=== PATIENT | female | born 1960 | race African-American/Black ===

== ENCOUNTER 2019-06-25 06:06 | Inpatient (IN) | payer BC ==
[~2019-06-25] VITALS: Ht 167.6 cm; Wt 79.4 kg
--- NOTE | 2019-06-25 07:30 | NUR ---
ERGONOMICS TECHNICIAN NOTES RECEIVED PT VIA [facility] DIRECT ADMIT FROM [place].ALERT ORIENTED X 4, INITIALLY SEEN AT [facility] FOR NAUSEA AND VOMITING, [place]. INCIDENTAL FINDING OF BP AT 200/100. WAS GIVEN ANTIEMETICS AND BP MEDICATIONS. BP WENT DOWN TO 130/90. PATIENT CHANGE INTO HOSPITAL GOWN, VITALS SIGNS TAKEN, BODY ASSESSMENT DONE. ON ROOM AIR, NOT IN ANY RESPIRATORY DISTRESS, NO SOB. RESPIRATION UNLABORED, SINUS RHYTHM ON TELE MONITOR, HR 69, DENIES CHEST PAIN, RT HAND IV ACCESS G18, FLUSHES WELL, SITE CLEAR. NO SKIN ISSUES. AMBULATORY, STEADY GAIT. UNIT ORIENTATION DONE AND USE OF CALL LIGHT. VERBALIZED UNDERSTANDING. BED LOW LOCKED, CALL LIGHT WITHIN REACH, WILL CONTINUE TO MONITOR.
--- NOTE | 2019-06-25 07:45 | NUR ---
RN NOTES DR. DENNY MORILLO NOTIFIED OF ADMISSION.
[2019-06-25 08:00] VITALS: BP 210/93
--- NOTE | 2019-06-25 08:00 | NUR ---
RN NOTES PER DR. BALDWIN. ADMITTING TODAY IS SASHA SOLIS. CALLED EXCHANGE AND LEFT MESSAGE TO SASHA SOLIS.
[2019-06-25] MEDS ORDERED: ASPI-1169 PO (08:33)
[2019-06-25] MEDS ORDERED: CARV25TA2 PO (08:33)
[2019-06-25] MEDS ORDERED: RAMI10CA69 PO (08:33)
[2019-06-25] MEDS ORDERED: HYDR25TA4 PO (08:33)
[2019-06-25] MEDS ORDERED: hydrALAZINE HCL IV 20 MG VIAL IV ONE (10:30)
--- NOTE | 2019-06-25 11:00 | NUR ---
RN NOTES ADMINISTERED HYDRALAZINE 10 MG IV EARLIER. BP RECHECKED. 172/65. JACQUELYN SOLIS AT BED SIDE.
--- NOTE | 2019-06-25 11:25 | NUR ---
RN NOtES Called lab and spoke with SARAH that the MRSA (nares) sample is ready for garbage pick up man.
[2019-06-25 12:00] VITALS: BP 160/76
--- NOTE | 2019-06-25 12:00 | NUR ---
RN NOTES Patient in bed, a/o x4. Verbally responsive and able to make needs known. Denies any pain or discomfort. Blood pressure is now lower than 0800 am vitals, 160/76. IV line on right hand intact and flush well. No sob or wheezing noted. Skin is intact. Will continue to monitor
[2019-06-25] MEDS ORDERED: ACETAMINOPHEN 325 MG TABLET PO PRN (12:30)
[2019-06-25] MEDS ORDERED: Z GUARD REMEDY 2 OZ OINT TP PRN (12:30)
[2019-06-25] MEDS ORDERED: MAGNESIUM HYDROXIDE 30 ML UDC PO PRN (12:30)
[2019-06-25] MEDS ORDERED: CARVEDILOL 25 MG TABLET PO SCH (12:30)
[2019-06-25] MEDS ORDERED: ZOLPIDEM TARTRATE 5 MG TABLET PO PRN (12:30)
[2019-06-25] MEDS ORDERED: HYDROCODONE/APAP 5/325MG 1 EACH TABLET PO PRN (12:30)
[2019-06-25] MEDS ORDERED: ONDANSETRON HCL/PF 4 MG/2 ML VIAL IVP PRN (12:30)
[2019-06-25] MEDS: IV NS 0.9% 1,000 ML IV PRN (12:41)
[2019-06-25] MEDS: ASPIRIN 81 MG TAB.CHEW PO SCH (12:48)
[2019-06-25] MEDS: AMLODIPINE BESYLATE 5 MG TABLET PO SCH (12:49)
--- NOTE | 2019-06-25 12:56 | NUR ---
RN notes Demarcus from lab notified about RAPID INFLUENZA sample for pick.
[2019-06-25 14:21] LABS: BASOPHILS # (AUTO) 0.1 /CMM (0.0-0.2); BASOPHILS % (AUTO) 0.9 % (0.0-2.0); EOSINOPHILS % (AUTO) 0.6 % (0.0-6.0); HEMATOCRIT 39 % (33-45); HEMOGLOBIN 12.8 g/dL (11.5-14.8); LYMPHOCYTES # (AUTO) 1.3 /CMM (0.8-4.8); MEAN CORPUSCULAR HGB CONC 33 g/dl (31.0-36.0); MEAN CORPUSCULAR VOLUME 92 fL (82-100); MONOCYTES # (AUTO) 0.7 /CMM (0.1-1.30); MONOCYTES % (AUTO) 7.9 % (2.0-12.0); NEUTROPHILS # (AUTO) 6.7 /CMM (1.8-8.9); NEUTROPHILS % (AUTO) 75.6 % (43.0-81.0); PLATELET COUNT (AUTO) 229 /CMM (150-450); RED BLOOD CELL COUNT(AUTO) 4.26 MIL/uL (4.0-5.2); WHITE BLOOD COUNT (AUTO) 8.9 K/uL (4.3-11.0)
[2019-06-25 14:47] LABS: CALCIUM, SERUM 8.4 mg/dL (8.5-10.1); CREATININE 1.3 mg/dL (0.6-1.3); POTASSIUM 3.9 mmol/L (3.5-5.1)
[2019-06-25 16:00] VITALS: BP 162/86
--- NOTE | 2019-06-25 16:00 | NUR ---
RN NOTES Called lab and spoke with LAN that urine sample is ready for pick. Per Lan they will send someone to pick it up. Urine sample is in the refrigerator
--- NOTE | 2019-06-25 16:00 | NUR ---
RN NOTES Pt in bed, a/o x4. Verbally responsive and able to make needs known. No sob noted. IV line in r hand intact and patent. Denies any pain or discomfort.
[2019-06-25 17:54] LABS: APPEARANCE,URINE CLEAR (CLEAR); BILIRUBIN,URINE NEGATIVE (NEGATIVE); BLOOD, URINE NEGATIVE Ery/uL (NEGATIVE); COLOR,URINE YELLOW (YELLOW); KETONES,URINE NEGATIVE (NEGATIVE); LEUKOCYTE ESTERASE ,URINE NEGATIVE (NEGATIVE); NITRITE, URINE NEGATIVE (NEGATIVE); PROTEIN,URINE NEGATIVE (NEGATIVE); UGLUCOSE NEGATIVE (NEGATIVE); UROBILINOGEN,URINE 0.2 EU/dL (0.2)
[2019-06-25 20:00] VITALS: BP 133/82
[2019-06-25] MEDS: CARVEDILOL 12.5 MG TABLET PO SCH (23:58)
[2019-06-26] VITALS: BP 167/95
[2019-06-26] MEDS: IV NS 0.9% 1,000 ML IV PRN ×2 (02:10→18:54)
[2019-06-26 04:00] VITALS: BP 162/64
[2019-06-26 07:22] LABS: BASOPHILS % (AUTO) 0.2 % (0.0-2.0); EOSINOPHILS % (AUTO) 1.3 % (0.0-6.0); HEMATOCRIT 37 % (33-45); HEMOGLOBIN 12.2 g/dL (11.5-14.8); LYMPHOCYTES # (AUTO) 2.1 /CMM (0.8-4.8); LYMPHOCYTES % (AUTO) 25.1 % (20.0-44.0); MEAN CORPUSCULAR HGB CONC 33 g/dl (31.0-36.0); MEAN CORPUSCULAR VOLUME 93 fL (82-100); MONOCYTES # (AUTO) 0.8 /CMM (0.1-1.30); MONOCYTES % (AUTO) 9.2 % (2.0-12.0); NEUTROPHILS # (AUTO) 5.5 /CMM (1.8-8.9); NEUTROPHILS % (AUTO) 64.2 % (43.0-81.0); PLATELET COUNT (AUTO) 201 /CMM (150-450); RED BLOOD CELL COUNT(AUTO) 4.01 MIL/uL (4.0-5.2); WHITE BLOOD COUNT (AUTO) 8.5 K/uL (4.3-11.0)
[2019-06-26 07:31] LABS: CALCIUM, SERUM 8.1 mg/dL (8.5-10.1); CREATININE 1.3 mg/dL (0.6-1.3); MAGNESIUM 2.2 mg/dL (1.8-2.4); PHOSPHORUS 3.6 mg/dL (2.5-4.9); POTASSIUM 3.9 mmol/L (3.5-5.1)
[2019-06-26 08:00] VITALS: BP 185/80
--- NOTE | 2019-06-26 08:20 | NUR ---
TELE 1/RN AM INITIAL NOTES RECEIVED PT IN BED. AWAKE, AO X4. NO RESPIRATORY DISTRESS NOTES. ON ROOM AIR O2 SAT @ 99%. ON TELE MONITOR WITH SR. HR 64bpm. PT IS AMBULATORY. SKIN IS INTACT. IV IN RIGHT HAND INTACT AND FLUSHED WELL. NS RUNNING @ 75MLS/HR. BED LOCKED AND SET TO THE LOWEST POSITION. PLAN OF CARE DISCUSSED WITH THE PT. WILL CONTINUE TO MONITOR. CL WITHIN REACH. SAFETY MAINTAINED.
[2019-06-26] MEDS: AMLODIPINE BESYLATE 5 MG TABLET PO SCH (08:33)
[2019-06-26] MEDS: CARVEDILOL 12.5 MG TABLET PO SCH ×2 (08:33→21:00)
[2019-06-26] MEDS: ASPIRIN 81 MG TAB.CHEW PO SCH (08:34)
--- NOTE | 2019-06-26 10:22 | NUR ---
telephone clerks supervisor note seen by dr harkins notified about bp 185/80 with order hydralazine and Norvasc
[2019-06-26] MEDS: AMLODIPINE BESYLATE 10 MG TABLET PO SCH ×2 (10:40→10:41)
[2019-06-26 12:00] VITALS: BP 143/79
--- NOTE | 2019-06-26 12:30 | NUR ---
television engineering teacher note all needs attended ,cont on ivf as ordered, will monitor
[2019-06-26 16:00] VITALS: BP_SYST 153; BP_SYST 171; BP_DIAS 68; BP_DIAS 78
--- NOTE | 2019-06-26 18:35 | NUR ---
radiotelegraphist note new hl on lt hand gag 24inserted with good blood return
--- NOTE | 2019-06-26 19:00 | NUR ---
ARTIFICIAL TEETH INSPECTOR NOTES PT IS STABLE. RESTING IN BED. NEW IV ON LEFT HAND 24 GAUGE. IV PATENT, NO S/S OF INFECTION. CONTINUOUS IV FLUIDS RUNNING. SKIN IS DRY AND INTACT. PT IS COMFORTABLE IN BED. CALL LIGHT WITHIN REACH. SAFETY MAINTAINED.
--- NOTE | 2019-06-26 19:35 | NUR ---
POLY AREA SUPERVISOR NOTES, RECEIVED PATIENT IN BED, AWAKE, AO X4, ABLE TO COMMUNICATE NEEDS AND CONCERNS, NO SOB/ACUTE/ RESPIRATORY DISTRESS NOTED AT THIS TIME, ON ROOM AIR WIT OPTIMAL O2 SAT LEVEL, NSR ON TELE MONITOR WITH HR IN 70S AT THIS TIME, IV IN LEFT HAND PATENT AND INTACT, NS RUNNING @ 75MLS/HR INFUSING WELL AND PATIENT TOLERATED WELL, BED LOCKED LOWEST POSITION, CALL LIGHT WITHIN REACH, SAFETY MAINTAINED, WILL CONTINUE TO MONITOR CLOSELY.
[2019-06-26 20:00] VITALS: BP 178/79
[2019-06-26] MEDS: hydrALAZINE HCL 25 MG TABLET PO PRN (20:31)
--- NOTE | 2019-06-26 21:00 | NUR ---
RN NOTES, HEMODIALYSIS DONE AT THIS TIME WITH VS 123/67, 90, 98.0, 19, 100%, NO ACUTE DISTRESS NOTED, TOLERATED WELL, WILL CONTINUE TO MONITOR CLOSELY. Addendum: 06/26/19 at 2152 by MARIA LUZ SEYMOUR RN WRONG ENTRY
--- NOTE | 2019-06-26 21:45 | NUR ---
RN NOTES, CARVEDILOL NOT ADMINISTER AT THIS TIME DUE TO PATIENT WITH HR 58 AT THIS TIME, HYDRALAZINE 25MG PRN ADMINISTERED, BP 178/79, BP ENTERED IN MAR WITH NON-ADMINISTRATION OF MEDICATION WAS WRONG, THIS IS THE VS FOR THIS PATIENT, THE REASON COREG NOT ADMINISTER BECAUSE HR 58.
[2019-06-27] VITALS: BP 155/77
[2019-06-27] MEDS: hydrALAZINE HCL 25 MG TABLET PO PRN ×3 (00:13→12:45)
[2019-06-27 04:00] VITALS: BP 179/85
--- NOTE | 2019-06-27 07:00 | NUR ---
RN NOTES, PATIENT IN BED BREATHING EVEN AND UNLABORED, NO SOB/ACUTE DISTRESS NOTED, NO C/O PAIN OR DISCOMFORT, NO CHANGE IN CONDITION DURING THE NIGHT, ALL NEEDS PROVIDED, CALL LIGHT W/I REACH, LAST BP AT 0500 148/78, WILL ENDORSE CONTINUITY OF CARE TO ONCOMING NURSE.
--- NOTE | 2019-06-27 07:40 | NUR ---
RN OPENING NOTES Received pt in bed, A/Ox 4. Verbally responsive and able to make needs known. Denies any pain or discomfort. With IVF running on L hand @75ml/hr. No sob/ wheezing noted.Skin is intact. Plan of care discussed with pt. Bed locked , in lowest position, call light within reach. Will continue to monitor.
[2019-06-27 08:00] VITALS: BP 180/79
[2019-06-27] MEDS: ASPIRIN 81 MG TAB.CHEW PO SCH (08:24)
[2019-06-27] MEDS: AMLODIPINE BESYLATE 10 MG TABLET PO SCH (08:29)
[2019-06-27] MEDS: CARVEDILOL 12.5 MG TABLET PO SCH (08:29)
[2019-06-27 08:34] VITALS: BP 178/75
--- NOTE | 2019-06-27 10:00 | NUR ---
RN NOTE PATIENT STATES THAT SHE TALKED TO DR SINGER, AND MD SAID SHE CAN GO HOME TODAY. PATIENT WANTED TO LEAVE AT THIS TIME. NO DC ORDER YET.
--- NOTE | 2019-06-27 10:30 | NUR ---
RN NOTE RECEIVED A CALL FROM [facility], THE PREVIOUS [facility] THE PATIENT WAS IN. PER RN, SHE WANTED TO RELAY THE RESULTS OF THE CT ABD AND PELVIS WITHOUT CONTRAST. SOFT TISSUE DENSITY/MASS IN THE REGION OF THE ANUS THAT MEASURES APPROXIMATELY 5x4.5x6. WILL PAGE DR SINGER TO RELAY RESULTS COPY OF CD IN PATIENT'S CHART
--- NOTE | 2019-06-27 10:45 | NUR ---
RN NOTE TRIED CALLING [facility], LINE IS BUSY
--- NOTE | 2019-06-27 11:00 | NUR ---
RN NOTE PAGED DR SINGER. WAITING FOR A CALL BACK
[2019-06-27] MEDS ORDERED: AMLO10TA7 PO (11:50)
[2019-06-27 12:00] VITALS: BP 196/92
--- NOTE | 2019-06-27 12:08 | NUR ---
RN NOTE RELAYED DONOHUE CT ABD AND PELVIS RESULTS TO DR SINGER. HE SAID HE WILL TALK TO THE PATIENT DC ORDER IN PLACED
[2019-06-27 12:46] VITALS: BP 196/92
--- NOTE | 2019-06-27 13:08 | NUR ---
RN NOTE DR SINGER AT BEDSIDE, AWARE ABOUT THE CT ABD AND PELVIS RESULT. SUGGESTED THE PATIENT TO SEE [facility]. . OK TO DC PATIENT. ADDITIONAL BP MEDS HAS BEEN ORDERED. HYDRALAZINE 25MG PO Q6H
--- NOTE | 2019-06-27 13:38 | NUR ---
HYDRAULIC CHAIR ASSEMBLER NOTES Patient was given exit care paper works. Instructed to see Dr. Ding in 1-2 weeks for f/u and pcp. Removed IV line, id bands and tele monitor. Belongings list signed, educated pt. New prescriptions given together with current medication list. Skin is intact, no picture taken.
== END 2019-06-27 13:40 | disposition home or self-care (01) | DRG 304 ==
LOC: TELE1 07:27
PROVIDERS: ADMIT Nurse Practitioner Acute Care; ATTEND Internal Medicine
DX: I16.0 Hypertensive urgency (principal); N17.0 Acute kidney failure with tubular necrosis; I50.32 Chronic diastolic (congestive) heart failure; I13.0 Hypertensive heart and chronic kidney disease with heart failure and stage 1 through stage 4 chronic kidney disease, or unspecified chronic kidney disease; N18.9 Chronic kidney disease, unspecified; N20.0 Calculus of kidney; R93.5 Abnormal findings on diagnostic imaging of other abdominal regions, including retroperitoneum
CPT/HCPCS: 36415; 80048-TC; 80061-TC; 81000-TC; 83735-TC; 84100-TC; 85025-TC; 93307-TC; G0378; J0360; J7030